=== PATIENT | male | born 1975 | race Caucasian/White ===

== ENCOUNTER 2018-08-19 17:33 | Emergency (ER) | payer OTHER ==
[2018-08-19 17:59] VITALS: BP 143/91
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
== END 2018-08-19 20:05 | disposition home or self-care (01) ==
LOC: ER 17:33
DX: M54.10 Radiculopathy, site unspecified (principal); M79.602 Pain in left arm
CPT/HCPCS: 99283

== ENCOUNTER → 2020-06-21 | Outpatient (CLI) | payer OTHER ==
--- NOTE | 2020-06-21 13:52 | Pulmonary Function Test ---
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
== END ==
LOC: RT 07:41
PROVIDERS: ATTEND Student in an Organized Health Care Education/Training Program
DX: J45.909 Unspecified asthma, uncomplicated (principal)
CPT/HCPCS: 94060